=== PATIENT | female | born 1995 | race Caucasian/White ===

== ENCOUNTER 2024-12-10 07:01 | Inpatient (IN) | payer BC ==
[~2024-12-10 07:01] MED LIST: BRETHINE 1 MG/ML SQ PRN; Ephedrine Sulfate 50 MG/ML IV PRN; Nubain 10 MG/ML IV PRN; PITOCIN 30 UNITS/ LR 500 ML 30 UNITS/500 ML PLAST..BAG IV SCH; STADOL 2 MG IV PRN; TYLENOL EXTRA STRENGTH 500 MG PO PRN; XYLOCAINE 1% HCL 20 ML MDV IJ PRN; Zofran 4 MG/2 ML VIAL IV PRN
[2024-12-10 08:00] LABS: BASOPHIL % 0.2 % (0.1-1.2); Basophil (Absolute #) 0.02 x10^3/uL (0.01-0.08); Eosinophil (Absolute #) 0.08 x10^3/uL (0.04-0.36); Hematocrit 35.2 % (34.1-44.9); Hemoglobin 11.7 g/dL (11.2-15.7); IMMATURE GRAN # 0.05 x10^3u/L (0.001-0.031); IMMATURE GRAN % 0.5 % (0.001-0.429); Lymphocyte (Absolute #) 1.99 x10^3/uL (1.18-3.74); Mean Corpuscular Hemoglobin 28.3 pg (25.6-32.2); Mean Corpuscular Hgb Concent. 33.2 g/dL (32.2-35.5); Monocyte (Absolute #) 0.66 x10^3/uL (0.24-0.86); NUCLEATED RBC # 0.00 x10^3u/L (0.00-0.012); NUCLEATED RBC % 0.0 % (0.00-0.2); Platelet Count 266 x10^3/uL (182-369); Red Blood Count 4.13 x10^6/uL (3.93-5.22); White Blood Count 9.1 x10^3/uL (3.98-10.04)
--- NOTE | 2024-12-10 08:14 | PCM.HP ---
History of Present Illness - Chief Complaint Chief Complaint: Induction of labor Date: 12/10/24 History of Present Illness: is a 29 year old @ 40w1d gestation who is being admitted for induction of labor due to post dates. Patient was 3 cm dilated in the office yesterday. has been uncomplicated and she is not having contractions. PNL: O+, Ab neg, RPR, HIV, Hep B/C all neg, RI. - Review of Systems Constitutional: No Fever, No Chills Respiratory: No Cough, No Short Of Breath Cardiac: No Chest Pain, No Palpitations Abdominal/Gastrointestinal: Other (gravid) Genitourinary Symptoms: Musculoskeletal: No Symptoms Neurological: No Symptoms Psychological: No Symptoms Medications & Allergies Home Medications: Home Medication List Cetirizine HCl [Zyrtec] 10 mg PO DAILY 12/10/24 [History Confirmed 12/10/24] Vit No.130/Iron/Folic [ Vitamins] 1 each PO DAILY 12/10/24 [History Confirmed 12/10/24] Allergies/Adverse Reactions: Allergies Allergy/AdvReac Type Severity Reaction Status Date / Time No Known Drug Allergies Allergy Verified 12/10/24 19:26 - Past Medical History Neurological History: No Pertinent History ENT History: No Pertinent History Cardiac History: No Pertinent History Respiratory History: No Pertinent History Endocrine Medical History: No Pertinent History Musculoskelatal History: No Pertinent History GI Medical History: No Pertinent History History: No Pertinent History - Social Determinants of Health Will the patient participate in the screening: Yes Do you worry about a steady place to live?: No In the past 12 months,have you had to go without utilities?: No Have you or anyone in your house had to go without enough: No Transportation Issues: No Has anyone in your support network made you feel unsafe?: No Does the patient want assistance with any of the above?: No - Physical Exam General Appearance: no apparent distress Neurologic Exam: alert Neck Exam: supple Pelvic Exam: other (/-3) Extremity Exam: No calf tenderness Skin Exam: normal color, warm, dry Results - Labs Lab/Micro Results: Lab Results-Last 24 Hours 12/10/24 Range/Units 07:44 WBC 9.1 (3.98-10.04) x10^3/uL RBC 4.13 (3.93-5.22) x10^6/uL Hgb 11.7 (11.2-15.7) g/dL Hct 35.2 (34.1-44.9) % MCV 85.2 (79.4-94.8) fL MCH 28.3 (25.6-32.2) pg MCHC 33.2 (32.2-35.5) g/dL RDW 16.5 H (11.7-14.4) % Plt Count 266 (182-369) x10^3/uL MPV 9.8 (9.4-12.3) fL Gran % 69.2 (34.0-71.1) % Immature Gran % (Auto) 0.5 H (0.001-0.429) % Nucleat RBC Rel Count 0.0 (0.00-0.2) % Eos # (Auto) 0.08 (0.04-0.36) x10^3/uL Immature Gran # (Auto) 0.05 H (0.001-0.031) x10^3u/L Absolute Lymphs (auto) 1.99 (1.18-3.74) x10^3/uL Absolute Monos (auto) 0.66 (0.24-0.86) x10^3/uL Absolute Nucleated RBC 0.00 (0.00-0.012) x10^3u/L Lymphocytes % 21.9 (19.3-51.7) % Monocytes % 7.3 (4.7-12.5) % Eosinophils % 0.9 (0.7-5.8) % Basophils % 0.2 (0.1-1.2) % Absolute Granulocytes 6.30 H (1.56-6.13) x10^3/uL Basophils # 0.02 (0.01-0.08) x10^3/uL Assessment/Plan (1) Elective induction of labor planned Current Visit: Yes Status: Acute Assessment & Plan: Plan for induction of labor -Start pitocin per protocol -Routine labor care -Epidural if desired. Code(s): TSV6491 -
[2024-12-10 08:29] LABS: Amphetamine,Urine NEGATIVE (NEGATIVE); Barbiturate,Urine NEGATIVE (NEGATIVE); Benzodiazepine,Urine NEGATIVE (NEGATIVE); Cocaine,Urine NEGATIVE (NEGATIVE); Methadone,Urine NEGATIVE (NEGATIVE); Opiate,Urine NEGATIVE (NEGATIVE); PCP,Urine NEGATIVE (NEGATIVE); THC,Urine NEGATIVE (NEGATIVE)
[2024-12-10 08:47] LABS: ABO TYPING O; RH TYPING POSITIVE
[2024-12-10] MEDS: PITOCIN 30 UNITS/ LR 500 ML 30 UNITS/500 ML PLAST..BAG IV SCH (09:00)
[2024-12-10] MEDS: Lactated Ringers 1,000 ML IV SCH (11:13)
[2024-12-10 12:02] LABS: Glucose, Urine Negative (Negative); Protein,Urine Dip Trace (Negative)
[2024-12-10] MEDS: FENTANYL 2 MCG-BUPIV 0.125%-NS 250 ML Epidur 250 ML EPIDURAL SCH (12:06)
[2024-12-10] MEDS: Lactated Ringers 1,000 ML IV ONE (12:07)
[2024-12-10] MEDS ORDERED: Lactated Ringers 1,000 ML IV ONE (19:00)
[2024-12-10] MEDS ORDERED: SOD CITRATE-CITRIC ACID SOLN ONE (19:02)
[2024-12-10] MEDS ORDERED: Reglan 10 MG/2 ML ONE (19:03)
[2024-12-10] MEDS ORDERED: Pepcid 20 MG VIAL IV ONE (19:03)
[2024-12-10] MEDS ORDERED: CEFAZOLIN SODIUM ONE (19:04)
[2024-12-10] MEDS: Pepcid 20 MG VIAL IV SCH (19:05)
[2024-12-10] MEDS: SOD CITRATE-CITRIC ACID SOLN PO SCH (19:05)
[2024-12-10] MEDS: Reglan 10 MG/2 ML IV SCH (19:05)
--- NOTE | 2024-12-10 19:06 | PCM.NOTE ---
Date and Time: 12/10/241900 Subjective Assessment: Patient has been laboring and actively pushing for approx 2 hours on her back, left, right, and hands and knees position. is not progressing and mom is becoming exhausted. Situation was discussed with mom and it was decided that we would perform a for arrested descent via shared decision making with patient. was called at 1902. LDR Objective Exam General Appearance: mild distress Gastrointestinal/Abdomen Exam: soft Extremity Exam: normal inspection, No calf tenderness Pelvic Exam: other (CE 10/100/+1) Objective Data Vital Signs: Vital Signs - 24 hr Temp Pulse Resp BP BP Pulse Ox 12/10/24 16:45 20 12/10/24 16:30 20 12/10/24 16:15 86 20 120/80 12/10/24 16:00 86 20 136/71 12/10/24 15:45 20 123/74 12/10/24 15:30 20 140/73 12/10/24 15:15 20 140/73 12/10/24 15:00 82 20 130/72 12/10/24 14:45 77 20 130/74 12/10/24 14:30 85 20 139/82 12/10/24 14:15 80 20 144/93 12/10/24 14:00 91 H 20 127/81 12/10/24 13:45 81 20 137/81 12/10/24 13:30 81 20 137/81 96 12/10/24 13:15 78 18 129/72 96 12/10/24 13:00 100 H 18 124/67 98 12/10/24 12:45 100 H 18 124/67 98 12/10/24 12:30 100 H 24 143/79 100 12/10/24 12:15 83 24 100 12/10/24 12:00 65 24 147/86 12/10/24 11:45 68 22 134/87 12/10/24 11:30 75 22 131/79 12/10/24 11:15 83 18 134/86 12/10/24 11:00 83 18 134/86 12/10/24 10:45 77 18 159/65 12/10/24 10:30 79 18 135/84 12/10/24 10:15 84 18 127/74 12/10/24 10:00 97.9 F 78 18 119/74 97 12/10/24 09:00 84 18 127/74 12/10/24 08:19 97.9 F 105 H 18 139/70 97 12/10/24 07:30 97.9 F 78 18 139/70 97 Intake and Output: Intake & Output 12/08/24 12/09/24 12/10/24 12/11/24 11:59 11:59 11:59 11:59 Intake Total 1000 Output Total 50 Balance 950 Weight 117.48 kg Lab Results: Lab Results-Last 24 Hours 12/10/24 12/10/24 12/10/24 Range/Units 07:44 07:44 07:45 WBC 9.1 (3.98-10.04) x10^3/uL RBC 4.13 (3.93-5.22) x10^6/uL Hgb 11.7 (11.2-15.7) g/dL Hct 35.2 (34.1-44.9) % MCV 85.2 (79.4-94.8) fL MCH 28.3 (25.6-32.2) pg MCHC 33.2 (32.2-35.5) g/dL RDW 16.5 H (11.7-14.4) % Plt Count 266 (182-369) x10^3/uL MPV 9.8 (9.4-12.3) fL Gran % 69.2 (34.0-71.1) % Immature Gran % (Auto) 0.5 H (0.001-0.429) % Nucleat RBC Rel Count 0.0 (0.00-0.2) % Eos # (Auto) 0.08 (0.04-0.36) x10^3/uL Immature Gran # (Auto) 0.05 H (0.001-0.031) x10^3u/L Absolute Lymphs (auto) 1.99 (1.18-3.74) x10^3/uL Absolute Monos (auto) 0.66 (0.24-0.86) x10^3/uL Absolute Nucleated RBC 0.00 (0.00-0.012) x10^3u/L Lymphocytes % 21.9 (19.3-51.7) % Monocytes % 7.3 (4.7-12.5) % Eosinophils % 0.9 (0.7-5.8) % Basophils % 0.2 (0.1-1.2) % Absolute Granulocytes 6.30 H (1.56-6.13) x10^3/uL Basophils # 0.02 (0.01-0.08) x10^3/uL Urine Color (Yellow) Urine Appearance (Clear) Urine pH (4.6-8.0) Ur Specific Alligator (1.005-1.030) Urine Protein (Negative) Urine Glucose (UA) (Negative) mg/dL Urine Ketones (Negative) Urine Blood (Negative) Urine Nitrite (Negative) Urine Bilirubin (Negative) Urine Urobilinogen (0.2) mg/dL Ur Leukocyte Esterase (Negative) U Hyaline Cast (Auto) (0-2) /LPF Urine Microscopic RBC (0-5) /HPF Urine Microscopic WBC (0-5) /HPF Ur Epithelial Cells (None Seen) /HPF Urine Bacteria (None Seen) /HPF Urine Culture Reflexed (NO) Urine Opiates Level NEGATIVE (NEGATIVE) Ur Methadone NEGATIVE (NEGATIVE) Urine Barbiturates NEGATIVE (NEGATIVE) Ur Phencyclidine (PCP) NEGATIVE (NEGATIVE) Urine Amphetamine NEGATIVE (NEGATIVE) U Benzodiazepine Level NEGATIVE (NEGATIVE) Urine Cocaine NEGATIVE (NEGATIVE) Urine Marijuana (THC) NEGATIVE (NEGATIVE) ABO Group O Rh Factor POSITIVE Antibody Screen NEGATIVE (NEGATIVE) 12/10/24 Range/Units 10:00 WBC (3.98-10.04) x10^3/uL RBC (3.93-5.22) x10^6/uL Hgb (11.2-15.7) g/dL Hct (34.1-44.9) % MCV (79.4-94.8) fL MCH (25.6-32.2) pg MCHC (32.2-35.5) g/dL RDW (11.7-14.4) % Plt Count (182-369) x10^3/uL MPV (9.4-12.3) fL Gran % (34.0-71.1) % Immature Gran % (Auto) (0.001-0.429) % Nucleat RBC Rel Count (0.00-0.2) % Eos # (Auto) (0.04-0.36) x10^3/uL Immature Gran # (Auto) (0.001-0.031) x10^3u/L Absolute Lymphs (auto) (1.18-3.74) x10^3/uL Absolute Monos (auto) (0.24-0.86) x10^3/uL Absolute Nucleated RBC (0.00-0.012) x10^3u/L Lymphocytes % (19.3-51.7) % Monocytes % (4.7-12.5) % Eosinophils % (0.7-5.8) % Basophils % (0.1-1.2) % Absolute Granulocytes (1.56-6.13) x10^3/uL Basophils # (0.01-0.08) x10^3/uL Urine Color Yellow (Yellow) Urine Appearance Cloudy A (Clear) Urine pH 6.5 (4.6-8.0) Ur Specific Alligator 1.020 (1.005-1.030) Urine Protein Trace A (Negative) Urine Glucose (UA) Negative (Negative) mg/dL Urine Ketones Negative (Negative) Urine Blood Negative (Negative) Urine Nitrite Negative (Negative) Urine Bilirubin Negative (Negative) Urine Urobilinogen 1.0 A (0.2) mg/dL Ur Leukocyte Esterase Moderate A (Negative) U Hyaline Cast (Auto) 6-10 A (0-2) /LPF Urine Microscopic RBC 3-5 (0-5) /HPF Urine Microscopic WBC 6-10 A (0-5) /HPF Ur Epithelial Cells Few (None Seen) /HPF Urine Bacteria Few A (None Seen) /HPF Urine Culture Reflexed YES (NO) Urine Opiates Level (NEGATIVE) Ur Methadone (NEGATIVE) Urine Barbiturates (NEGATIVE) Ur Phencyclidine (PCP) (NEGATIVE) Urine Amphetamine (NEGATIVE) U Benzodiazepine Level (NEGATIVE) Urine Cocaine (NEGATIVE) Urine Marijuana (THC) (NEGATIVE) ABO Group Rh Factor Antibody Screen (NEGATIVE) Medications: Medications Generic Name Dose Route Start Last Admin Trade Name Freq PRN Reason Stop Dose Admin Acetaminophen 1,000 mg 12/10/24 07:00 Acetaminophen 500 Mg Tablet PO 01/09/25 06:59 Q4H PRN PRN HEADACHE/MILD PAIN/ FEVER Butorphanol Tartrate 1 mg 12/10/24 07:00 Butorphanol Tartrate 2 Mg/Ml Vial IV 01/09/25 06:59 Q4H PRN PRN MODERATE PAIN Ephedrine Sulfate 10 mg 12/10/24 07:00 Ephedrine Sulfate 50 Mg/Ml IV 01/09/25 06:59 PRN PRN SBP<100 Lactated Ringer's 1,000 mls @ 125 mls/hr 12/10/24 07:00 12/10/24 16:40 Lactated Ringers IV 01/09/25 06:59 125 mls/hr .Q8H TAMIKO Administration Oxytocin/Lactated Ringer's 30 units in 500 mls @ 5 mls/hr 12/10/24 07:00 Pitocin 30 Units/ Lr 500 Ml IV 01/09/25 06:59 .Q24H TAMIKO FENTANYL/BUPIVACAINE/NS/PF 250 mls @ 0 mls/hr 12/10/24 07:00 12/10/24 12:06 Fentanyl 2 Mcg-Bupiv 0.125%-Ns 250 Ml Epidur EPIDURAL 01/09/25 06:59 14 mls/hr .Q0M TAMIKO Administration Protocol Titrate Oxytocin/Lactated Ringer's 30 units in 500 mls @ 0 mls/hr 12/10/24 07:00 12/10/24 09:00 Pitocin 30 Units/ Lr 500 Ml IV 01/09/25 06:59 2 mls/hr .Q0M TAMIKO Administration Protocol Titrate Lidocaine HCl 10 ml 12/10/24 07:00 Lidocaine Hcl 1% 20 Ml Mdv 20 Ml Ml IJ 01/09/25 06:59 PRN PRN PAIN Nalbuphine HCl 5 - 10 mg 12/10/24 07:00 Nalbuphine Hcl 10 Mg/Ml Ampul IV 01/09/25 06:59 Q4H PRN PRN PAIN Ondansetron HCl 4 mg 12/10/24 07:00 Ondansetron Hcl 4 Mg/2 Ml Vial IV 01/09/25 06:59 Q4H PRN PRN NAUSEA/VOMITING Terbutaline Sulfate 0.25 mg 12/10/24 07:00 Terbutaline Sulfate 1 Mg/Ml Vial SQ 01/09/25 06:59 PRN PRN FOR HYPERSTIMULATION Discontinued Medications Generic Name Dose Route Start Last Admin Trade Name Freq PRN Reason Stop Dose Admin Lactated Ringer's 1,000 mls @ 999 mls/hr 12/10/24 07:00 12/10/24 12:07 Lactated Ringers IV 12/10/24 08:00 999 mls/hr .Q1H1M ONE Administration Monitor Strip - Monitor Monitor: Baseline approx 150 bpm, + accels, no decels, ctx every 3-4 minutes Assessment & Plan (1) Elective induction of labor planned Current Visit: Yes Status: Acute Code(s): NIT7658 - (2) Arrested labor Current Visit: Yes Status: Acute Code(s): O62.1 - SECONDARY UTERINE INERTIA
[2024-12-10 19:28] LABS: INR 0.9 (0.8-3.0); PROTIME 9.9 SECONDS (9.4-12.5); PTT 23.9 SECONDS (25.1-36.5)
[2024-12-10] MEDS ORDERED: Vitamin K 1 MG ONE (19:30)
[2024-12-10] MEDS ORDERED: Erythromycin 1 GM ONE (19:30)
[2024-12-10] MEDS ORDERED: Nesacaine 3% -Mpf*** 20ML SDV ONE (19:51)
[2024-12-10] MEDS ORDERED: Zofran 4 MG/2 ML VIAL ONE (19:51)
[2024-12-10] MEDS ORDERED: Naropin 0.5% 30 ML VIAL ONE (20:23)
[2024-12-10] MEDS ORDERED: TORAdol 30 mg Injection ONE (20:28)
--- NOTE | 2024-12-10 21:22 | OP ---
OB OP NOTE - OPERATIVE NOTE Surgery Date: 12/10/24 Surgery Time: 19:56 PREOPERATIVE DIAGNOSIS: Arrested descent POST OPERATIVE DIAGNOSIS: Arrested Descent Procedure: primary Surgeon: DEVIN LANDIS ANESTHESIA: Epidural ESTIMATED BLOOD LOSS: 648 CONDITION: Stable HISTORY - HISTORY HISTORY: HISTORY: FINDINGS - FINDINGS FINDINGS: FINDINGS: male DESCRIPTION OF PROCEDURE - DESCRIPTION OF PROCEDURE DESCRIPTION OF PROCEDURE: DESCRIPTION OF PROCEDURE: Pre-op diagnosis: Arrested descent of attempted labor at 40w2d gestation. Postop diagnosis: Same Procedure: primary low-transverse section Surgeon: Devin Landis MD Marble Polisher Hand: Lucian Grady MD Anesthesiologist: Lamont Stroud CRNA Anesthesia: epidural QBL: 648 mL UOP: 100 mL Specimen: None Complications: None Findings: Male infant in vertex position with Apgars 5/8; weight 10lbs 2oz; normal uterus, tubes, and ovaries section was called at approximately 1900 for arrested descent. Infant had a category 1 FHT with a baseline of 140 bpm. The patient was taken to the operating room and a spinal epidural was placed. 2 g of Ancef were given for infection prophylaxis. She is prepared and draped in a sterile fashion. A skin incision was made with scalpel. The incision was carried down to the fascia. The fascia was incised and extended laterally. The inferior aspect of the fascia was grasped with the Nirmal clamps. The underlying rectus muscle and pyramidalis was dissected off sharply with Hendrix scissors. In a similar fashion, the superior aspect of the fascia was elevated with Nirmal's and the rectus muscle was dissected off. The rectus muscle was in the midline down to the level of the pubic symphysis. Preperitoneal fatty tissue was bluntly dissected to expose the peritoneum. The peritoneum was found to be free of adherent bowel and dissected bluntly. The peritoneum dissection was extended xiong periorly and inferiorly to the bladder reflection with good visualization of the bladder. Dmitri device was inserted into the abdomen to expose the uterus. The lower uterine segment was incised with a scalpel. The amniotic sac had already been ruptured. Fluid continued to be clear. The uterine incision was extended bluntly with lateral and upward traction. The fetus was in cephalic position. Nurse applied pressure to the head through the vaginal to assist with delivery. The head was elevated out of the pelvis with special attention paid to avoid using the uterine incision as a fulcrum. Kelvin horowitzle fundal pressure was applied once the head was brought into the incision. The was delivered. The cord was clamped immediately. The infant was handed off to the respiratory therapy team. Cord blood and cord blood gas were obtained. IV oxytocin was initiated to facilitate uterine contractions. The placenta was delivered intact with manual massage of the uterine fundus. The uterus was gently wiped with a lap sponge to assure complete removal of placenta membranes. Dmitri device was removed and the uterus lifted out of the cavity to obtain and more optimal view of the uterine incision. The uterine incision was closed with a 0 Vicryl suture in a running locked fashion in three segments due to the jagged nature of the incision after delivery. Hemostasis was achieved. The ovaries and tubes were found to be normal. Uterus was placed back in the abdomen and the area was irrigated and clots were removed. Hemostasis was confirmed. The peritoneum was closed with an 0 Vicryl suture in a continuous running fashion. The fascia was closed with an 0 Vicryl suture. The skin was closed with 4-0 Monocryl suture in a subcuticular fashion. The patient tolerated the procedure well. All the counts were correct x 2. The patient was taken to the recovery room in stable condition. Lucian Grady MD provided assistance excellent assitance with retracting, fundal pressure, and suturing.
[2024-12-10] MEDS ORDERED: Dulcolax 10 MG SUPP PR PRN (21:25)
[2024-12-10] MEDS ORDERED: Dermoplast Spray TP PRN (21:25)
[2024-12-10] MEDS ORDERED: LANSINOH 40 GM TOP PRN (21:25)
[2024-12-10] MEDS ORDERED: CORTISONE 1% CREAM TP PRN (21:25)
[2024-12-10] MEDS ORDERED: NORCO 5/325 MG PO PRN (21:25)
[2024-12-10] MEDS ORDERED: MORPHINE SULFATE 2 MG INJ IV PRN (21:29)
[2024-12-10] MEDS ORDERED: BENADRYL 50 MG/ML IV PRN (21:29)
[2024-12-10] MEDS ORDERED: Narcan 0.4 MG/ML IV PRN (21:29)
[2024-12-10] MEDS ORDERED: CLARITIN 10 MG PO PRN (21:29)
[2024-12-10] MEDS ORDERED: Zofran 4 MG/2 ML VIAL IV PRN (21:29)
[2024-12-10] MEDS ORDERED: Nubain 10 MG/ML IV PRN (21:29)
[2024-12-10] MEDS ORDERED: HOLD NARCOTIC ANALGESICS AND SEDATIVES X24 HR MC PRN (21:29)
[2024-12-10] MEDS ORDERED: PERCOCET TABLET 5/325MG ONE (22:49)
[2024-12-10] MEDS: PERCOCET TABLET 5/325MG PO PRN (22:52)
[2024-12-10] MEDS: Docusate Sodium 100 MG PO SCH (23:10)
[2024-12-11] MEDS ORDERED: TORAdol 30 mg Injection ONE (02:29)
[2024-12-11] MEDS: TORAdol 30 mg Injection IV PRN (02:30)
[2024-12-11] MEDS ORDERED: PERCOCET TABLET 5/325MG ONE ×2 (02:58→06:56)
[2024-12-11] MEDS ORDERED: Dextrose 5%-Lr IV Solution 1000 ML 1,000 ML IV ONE (03:08)
[2024-12-11] MEDS: Dextrose 5%-Lr IV Solution 1000 ML 1,000 ML IV SCH (03:08)
[2024-12-11 05:20] LABS: BASOPHIL % 0.1 % (0.1-1.2); Basophil (Absolute #) 0.03 x10^3/uL (0.01-0.08); Eosinophil (Absolute #) 0 x10^3/uL (0.04-0.36); Hematocrit 29.6 % (34.1-44.9); Hemoglobin 9.4 g/dL (11.2-15.7); IMMATURE GRAN # 0.13 x10^3u/L (0.001-0.031); IMMATURE GRAN % 0.6 % (0.001-0.429); Lymphocyte (Absolute #) 1.38 x10^3/uL (1.18-3.74); Mean Corpuscular Hemoglobin 27.7 pg (25.6-32.2); Mean Corpuscular Hgb Concent. 31.8 g/dL (32.2-35.5); Monocyte (Absolute #) 1.56 x10^3/uL (0.24-0.86); NUCLEATED RBC # 0.00 x10^3u/L (0.00-0.012); NUCLEATED RBC % 0.0 % (0.00-0.2); Platelet Count 236 x10^3/uL (182-369); Red Blood Count 3.39 x10^6/uL (3.93-5.22); White Blood Count 21.4 x10^3/uL (3.98-10.04)
[2024-12-11 07:13] LABS: Slide Review 1 YES
--- NOTE | 2024-12-11 07:51 | PCM.NOTE ---
Date and Time: 12/11/24 0745 Subjective Assessment: POD1 s/p primary c/s for arrested descent. No concerns. She has not been out of bed yet. Cerda is still in place. She has not passed gas. She has eating without difficulty. She is attempting to breast feed. Lochia moderate. Pain well controlled Objective Exam General Appearance: no apparent distress Neurologic Exam: alert, oriented x 3 Skin Exam: normal color Eye Exam: PERRL, EOMI Neck Exam: supple, No non-tender Respiratory Exam: normal breath sounds Cardiovascular Exam: regular rate/rhythm, normal heart sounds Gastrointestinal/Abdomen Exam: soft, tenderness (appropriate. Incision dressing still in place) Uterus: Firm Extremity Exam: No calf tenderness Objective Data Vital Signs: Vital Signs - 24 hr Temp Pulse Resp BP BP Pulse Ox 12/11/24 02:15 98.1 F 82 16 131/82 100 12/11/24 00:17 98.1 F 92 H 16 137/62 100 12/10/24 23:43 98.1 F 88 16 126/61 99 12/10/24 23:00 98.1 F 88 16 126/61 99 12/10/24 22:45 98.0 F 83 16 153/72 97 12/10/24 22:30 98.0 F 82 16 163/70 100 12/10/24 22:15 98.8 F 70 16 150/73 100 12/10/24 22:00 98.0 F 73 16 145/67 97 12/10/24 21:45 98.0 F 76 16 130/60 100 12/10/24 21:30 98.0 F 73 16 133/82 97 12/10/24 19:07 97.5 F 20 139/70 12/10/24 19:01 97.5 F 88 20 139/70 93 L 12/10/24 17:00 97.5 F 20 119/71 12/10/24 16:45 20 12/10/24 16:30 20 12/10/24 16:15 86 20 120/80 12/10/24 16:00 86 20 136/71 12/10/24 15:45 20 123/74 12/10/24 15:30 20 140/73 12/10/24 15:15 20 140/73 12/10/24 15:00 82 20 130/72 12/10/24 14:45 77 20 130/74 12/10/24 14:30 85 20 139/82 12/10/24 14:15 80 20 144/93 12/10/24 14:00 91 H 20 127/81 12/10/24 13:45 81 20 137/81 12/10/24 13:30 81 20 137/81 96 12/10/24 13:15 78 18 129/72 96 12/10/24 13:00 100 H 18 124/67 98 12/10/24 12:45 100 H 18 124/67 98 12/10/24 12:30 100 H 24 143/79 100 12/10/24 12:15 83 24 100 12/10/24 12:00 65 24 147/86 12/10/24 11:45 68 22 134/87 12/10/24 11:30 75 22 131/79 12/10/24 11:15 83 18 134/86 12/10/24 11:00 83 18 134/86 12/10/24 10:45 77 18 159/65 12/10/24 10:30 79 18 135/84 12/10/24 10:15 84 18 127/74 12/10/24 10:00 97.9 F 78 18 119/74 97 12/10/24 09:00 84 18 127/74 12/10/24 08:19 97.9 F 105 H 18 139/70 97 Pain Assessment - Last Documented Pain Intensity [Posterior] 3 Pain Intensity 6 Pain Scale Used 0-10 Pain Scale Intake and Output: Intake & Output 12/08/24 12/09/24 12/10/24 12/11/24 11:59 11:59 11:59 11:59 Intake Total 3400 Output Total 350 Balance 3050 Weight 117.48 kg 117.48 kg Lab Results: Lab Results-Last 24 Hours 12/10/24 12/10/24 12/10/24 Range/Units 07:44 07:44 07:45 WBC 9.1 (3.98-10.04) x10^3/uL RBC 4.13 (3.93-5.22) x10^6/uL Hgb 11.7 (11.2-15.7) g/dL Hct 35.2 (34.1-44.9) % MCV 85.2 (79.4-94.8) fL MCH 28.3 (25.6-32.2) pg MCHC 33.2 (32.2-35.5) g/dL RDW 16.5 H (11.7-14.4) % Plt Count 266 (182-369) x10^3/uL MPV 9.8 (9.4-12.3) fL Gran % 69.2 (34.0-71.1) % Immature Gran % (Auto) 0.5 H (0.001-0.429) % Nucleat RBC Rel Count 0.0 (0.00-0.2) % Eos # (Auto) 0.08 (0.04-0.36) x10^3/uL Immature Gran # (Auto) 0.05 H (0.001-0.031) x10^3u/L Absolute Lymphs (auto) 1.99 (1.18-3.74) x10^3/uL Absolute Monos (auto) 0.66 (0.24-0.86) x10^3/uL Absolute Nucleated RBC 0.00 (0.00-0.012) x10^3u/L Lymphocytes % 21.9 (19.3-51.7) % Monocytes % 7.3 (4.7-12.5) % Eosinophils % 0.9 (0.7-5.8) % Basophils % 0.2 (0.1-1.2) % Absolute Granulocytes 6.30 H (1.56-6.13) x10^3/uL Basophils # 0.02 (0.01-0.08) x10^3/uL PT (9.4-12.5) SECONDS INR (0.8-3.0) APTT (25.1-36.5) SECONDS Urine Color (Yellow) Urine Appearance (Clear) Urine pH (4.6-8.0) Ur Specific Silva (1.005-1.030) Urine Protein (Negative) Urine Glucose (UA) (Negative) mg/dL Urine Ketones (Negative) Urine Blood (Negative) Urine Nitrite (Negative) Urine Bilirubin (Negative) Urine Urobilinogen (0.2) mg/dL Ur Leukocyte Esterase (Negative) U Hyaline Cast (Auto) (0-2) /LPF Urine Microscopic RBC (0-5) /HPF Urine Microscopic WBC (0-5) /HPF Ur Epithelial Cells (None Seen) /HPF Urine Bacteria (None Seen) /HPF Urine Culture Reflexed (NO) Urine Opiates Level NEGATIVE (NEGATIVE) Ur Methadone NEGATIVE (NEGATIVE) Urine Barbiturates NEGATIVE (NEGATIVE) Ur Phencyclidine (PCP) NEGATIVE (NEGATIVE) Urine Amphetamine NEGATIVE (NEGATIVE) U Benzodiazepine Level NEGATIVE (NEGATIVE) Urine Cocaine NEGATIVE (NEGATIVE) Urine Marijuana (THC) NEGATIVE (NEGATIVE) Slides for Path Review ABO Group O Rh Factor POSITIVE Antibody Screen NEGATIVE (NEGATIVE) 12/10/24 12/10/24 12/11/24 Range/Units 10:00 19:10 04:30 WBC 21.4 H (3.98-10.04) x10^3/uL RBC 3.39 L (3.93-5.22) x10^6/uL Hgb 9.4 L (11.2-15.7) g/dL Hct 29.6 L (34.1-44.9) % MCV 87.3 (79.4-94.8) fL MCH 27.7 (25.6-32.2) pg MCHC 31.8 L (32.2-35.5) g/dL RDW 17.0 H (11.7-14.4) % Plt Count 236 (182-369) x10^3/uL MPV 9.7 (9.4-12.3) fL Gran % 85.6 H (34.0-71.1) % Immature Gran % (Auto) 0.6 H (0.001-0.429) % Nucleat RBC Rel Count 0.0 (0.00-0.2) % Eos # (Auto) 0 L (0.04-0.36) x10^3/uL Immature Gran # (Auto) 0.13 H (0.001-0.031) x10^3u/L Absolute Lymphs (auto) 1.38 (1.18-3.74) x10^3/uL Absolute Monos (auto) 1.56 H (0.24-0.86) x10^3/uL Absolute Nucleated RBC 0.00 (0.00-0.012) x10^3u/L Lymphocytes % 6.4 L (19.3-51.7) % Monocytes % 7.3 (4.7-12.5) % Eosinophils % 0.0 L (0.7-5.8) % Basophils % 0.1 (0.1-1.2) % Absolute Granulocytes 18.33 H (1.56-6.13) x10^3/uL Basophils # 0.03 (0.01-0.08) x10^3/uL PT 9.9 (9.4-12.5) SECONDS INR 0.90 (0.8-3.0) APTT 23.9 L (25.1-36.5) SECONDS Urine Color Yellow (Yellow) Urine Appearance Cloudy A (Clear) Urine pH 6.5 (4.6-8.0) Ur Specific Silva 1.020 (1.005-1.030) Urine Protein Trace A (Negative) Urine Glucose (UA) Negative (Negative) mg/dL Urine Ketones Negative (Negative) Urine Blood Negative (Negative) Urine Nitrite Negative (Negative) Urine Bilirubin Negative (Negative) Urine Urobilinogen 1.0 A (0.2) mg/dL Ur Leukocyte Esterase Moderate A (Negative) U Hyaline Cast (Auto) 6-10 A (0-2) /LPF Urine Microscopic RBC 3-5 (0-5) /HPF Urine Microscopic WBC 6-10 A (0-5) /HPF Ur Epithelial Cells Few (None Seen) /HPF Urine Bacteria Few A (None Seen) /HPF Urine Culture Reflexed YES (NO) Urine Opiates Level (NEGATIVE) Ur Methadone (NEGATIVE) Urine Barbiturates (NEGATIVE) Ur Phencyclidine (PCP) (NEGATIVE) Urine Amphetamine (NEGATIVE) U Benzodiazepine Level (NEGATIVE) Urine Cocaine (NEGATIVE) Urine Marijuana (THC) (NEGATIVE) Slides for Path Review YES ABO Group Rh Factor Antibody Screen (NEGATIVE) Medications: Medications Generic Name Dose Route Start Last Admin Trade Name Freq PRN Reason Stop Dose Admin Acetaminophen 500 - 1,000 mg 12/10/24 21:25 Acetaminophen 500 Mg Tablet PO 01/09/25 21:24 Q4H PRN PRN MILD PAIN Hydrocodone Bitart/Acetaminophen 1 tab 12/10/24 21:25 Hydrocodone/Apap 5/325 1 Tab Tablet PO 12/15/24 21:24 Q4H PRN PRN SEVERE PAIN Benzocaine 40 gm 12/10/24 21:25 Benzocaine/Lanolin/Aloe Vera 85 Gm Can TP 01/09/25 21:24 UD PRN PAIN Bisacodyl 10 mg 12/10/24 21:25 Bisacodyl 10 Mg Supp.Rect WI 01/09/25 21:24 PRN PRN CONSTIPATION Diphenhydramine HCl 12.5 - 25 mg 12/10/24 21:29 Diphenhydramine Hcl 50 Mg/Ml Vial IV 12/11/24 21:28 Q6H PRN PRN ITCHING Docusate Sodium 100 mg 12/10/24 22:00 12/10/24 23:10 Docusate Sodium 100 Mg Capsule PO 01/09/25 21:59 Not Given BID TAMIKO Emollient Ointment 0 gm 12/10/24 21:25 Lansinoh 40 Gm Tube TOP 01/09/25 21:24 PRN PRN PAIN Hydrocortisone 0.5 gm 12/10/24 21:25 Hydrocortisone 1% Cream 28 Gm Tube TP 01/09/25 21:24 PRN PRN ITCHING Lactated Ringer's 1,000 mls @ 125 mls/hr 12/10/24 07:00 12/10/24 16:40 Lactated Ringers IV 01/09/25 06:59 125 mls/hr .Q8H TAMIKO Administration Oxytocin/Lactated Ringer's 30 units in 500 mls @ 0 mls/hr 12/10/24 07:00 12/10/24 09:00 Pitocin 30 Units/ Lr 500 Ml IV 01/09/25 06:59 2 mls/hr .Q0M TAMIKO Administration Protocol Titrate Dextrose/Lactated Ringer's 1,000 mls @ 125 mls/hr 12/10/24 21:30 12/11/24 03:08 Dextrose 5%-Lr Iv Solution 1000 Ml IV 01/09/25 21:29 125 mls/hr .Q8H TAMIKO Administration Ibuprofen 800 mg 12/10/24 21:25 Ibuprofen 400 Mg Tablet PO 01/09/25 21:24 Q6H PRN PRN MODERATE PAIN Ketorolac Tromethamine 30 mg 12/11/24 03:00 12/11/24 02:30 Ketorolac Tromethamine 30 Mg/Ml Inj IV 12/16/24 02:59 30 mg Q6H PRN PRN Administration PAIN Loratadine 10 mg 12/10/24 21:29 Loratadine 10 Mg Tablet PO 12/11/24 21:28 QDP PRN ITCHING Morphine Sulfate 2 mg 12/10/24 21:29 Morphine Sulfate 2 Mg/Ml Inj IV 12/11/24 21:28 .Q30MIN PRN PRN SEVERE PAIN Nalbuphine HCl 5 - 10 mg 12/10/24 07:00 Nalbuphine Hcl 10 Mg/Ml Ampul IV 01/09/25 06:59 Q4H PRN PRN PAIN Nalbuphine HCl 5 mg 12/10/24 21:29 Nalbuphine Hcl 10 Mg/Ml Ampul IV 12/11/24 21:28 Q6H PRN PRN ITCHING Naloxone HCl 0.1 mg 12/10/24 21:29 Naloxone Hcl 0.4 Mg/Ml Ml IV 12/11/24 21:28 PRN PRN OVERDOSE Ondansetron HCl 4 mg 12/10/24 07:00 Ondansetron Hcl 4 Mg/2 Ml Vial IV 01/09/25 06:59 Q4H PRN PRN NAUSEA/VOMITING Ondansetron HCl 4 mg 12/10/24 21:29 Ondansetron Hcl 4 Mg/2 Ml Vial IV 12/11/24 21:28 PRN PRN NAUSEA Oxycodone/Acetaminophen 1 - 2 tab 12/10/24 21:29 12/11/24 06:57 Oxycodone Hcl/Apap 5 Mg/325 Mg Tablet PO 12/11/24 21:28 2 tab Q4H PRN PRN Administration MODERATE PAIN Polysaccharide Iron Complex 150 mg 12/11/24 10:00 Iron Polysaccharides Complex 150 Mg Capsule PO 01/10/25 09:59 DAILY TAMIKO Terbutaline Sulfate 0.25 mg 12/10/24 07:00 Terbutaline Sulfate 1 Mg/Ml Vial SQ 01/09/25 06:59 PRN PRN FOR HYPERSTIMULATION Discontinued Medications Generic Name Dose Route Start Last Admin Trade Name Freq PRN Reason Stop Dose Admin Acetaminophen 1,000 mg 12/10/24 07:00 Acetaminophen 500 Mg Tablet PO 01/09/25 06:59 Q4H PRN PRN HEADACHE/MILD PAIN/ FEVER Butorphanol Tartrate 1 mg 12/10/24 07:00 Butorphanol Tartrate 2 Mg/Ml Vial IV 01/09/25 06:59 Q4H PRN PRN MODERATE PAIN Citric Acid/Sodium Citrate 30 ml 12/10/24 19:00 12/10/24 19:05 Citric Acid/Sodium Citrate 30 Ml Solution PO 12/10/24 23:01 30 ml 1HRPRIOR TAMIKO Administration Ephedrine Sulfate 10 mg 12/10/24 07:00 Ephedrine Sulfate 50 Mg/Ml IV 01/09/25 06:59 PRN PRN SBP<100 Famotidine 20 mg 12/10/24 19:00 12/10/24 19:05 Famotidine 20 Mg/1 Vial IV 12/10/24 23:01 20 mg 1HRPRIOR TAMIKO Administration Oxytocin/Lactated Ringer's 30 units in 500 mls @ 5 mls/hr 12/10/24 07:00 Pitocin 30 Units/ Lr 500 Ml IV 01/09/25 06:59 .Q24H TAMIKO Lactated Ringer's 1,000 mls @ 999 mls/hr 12/10/24 07:00 12/10/24 12:07 Lactated Ringers IV 12/10/24 08:00 999 mls/hr .Q1H1M ONE Administration FENTANYL/BUPIVACAINE/NS/PF 250 mls @ 0 mls/hr 12/10/24 07:00 12/10/24 12:06 Fentanyl 2 Mcg-Bupiv 0.125%-Ns 250 Ml Epidur EPIDURAL 01/09/25 06:59 14 mls/hr .Q0M TAMIKO Administration Protocol Titrate Lactated Ringer's 1,000 mls @ 999 mls/hr 12/10/24 19:00 Lactated Ringers IV 12/10/24 20:00 .Q1H1M ONE Cefazolin Sodium 2 gm/ Sodium 100 mls @ 200 mls/hr 12/10/24 19:00 12/10/24 19:06 Chloride IV 12/10/24 19:29 200 mls/hr ONCALLTOOR ONE Administration Lidocaine HCl 10 ml 12/10/24 07:00 Lidocaine Hcl 1% 20 Ml Mdv 20 Ml Ml IJ 01/09/25 06:59 PRN PRN PAIN Metoclopramide HCl 10 mg 12/10/24 19:00 12/10/24 19:05 Metoclopramide Hcl 10 Mg/2 Ml Vial IV 12/10/24 23:01 10 mg 1HRPRIOR TAMIKO Administration Non-Formulary Medication 1 each 12/10/24 21:29 Hold Narcotic Analgesics/Sedatives 1 Each Each 12/11/24 21:28 PRN PRN PAIN Assessment/Plan (1) delivery delivered Current Visit: Yes Status: Acute Assessment & Plan: POD1 s/p for arrested descent -Remove cerda today -Increase mobility -Iron supplements for anemia -Continue with pain control -Continue routine postop/ care Code(s): O82 - ENCOUNTER FOR DELIVERY WITHOUT INDICATION (2) Elective induction of labor planned Current Visit: Yes Status: Acute Code(s): VAC8751 - (3) Arrested labor Current Visit: Yes Status: Acute Code(s): O62.1 - SECONDARY UTERINE INERTIA
[2024-12-11 08:27] LABS: RPR Non Reactive (Non Reactive)
[2024-12-11] MEDS ORDERED: FERREX 150 ONE (09:00)
[2024-12-11] MEDS ORDERED: Docusate Sodium 100 MG ONE (09:00)
[2024-12-11] MEDS: FERREX 150 PO SCH (09:03)
[2024-12-11] MEDS: MOTRIN 400 MG PO PRN (20:01)
[2024-12-12 05:42] LABS: Hematocrit 27.4 % (34.1-44.9); Hemoglobin 8.6 g/dL (11.2-15.7); Mean Corpuscular Hemoglobin 27.7 pg (25.6-32.2); Mean Corpuscular Hgb Concent. 31.4 g/dL (32.2-35.5); Platelet Count 236 x10^3/uL (182-369); Red Blood Count 3.10 x10^6/uL (3.93-5.22); White Blood Count 16.9 x10^3/uL (3.98-10.04)
--- NOTE | 2024-12-12 11:28 | PCM.NOTE ---
Date and Time: 12/12/24 1128 Subjective Assessment: POD2 s/p . Doing well. Passing gas, voiding on her own, no light headedness or dizziness, lochia minimal, breast feeding with some difficulty. Hgb decreased to 8.6. Objective Exam General Appearance: no apparent distress Neurologic Exam: alert, oriented x 3 Skin Exam: normal color Eye Exam: PERRL Respiratory Exam: normal breath sounds Cardiovascular Exam: regular rate/rhythm, normal heart sounds, No murmur Gastrointestinal/Abdomen Exam: soft Uterus: Normal (2 cm below umbilicus) Extremity Exam: normal inspection, No calf tenderness Back Exam: normal inspection Objective Data Vital Signs: Vital Signs - 24 hr Temp Pulse Resp BP Pulse Ox 12/12/24 08:00 98.1 F 85 20 132/68 97 12/12/24 02:00 98.1 F 85 20 132/68 97 12/11/24 20:00 98.2 F 98 H 20 129/67 97 12/11/24 14:00 98.3 F 85 20 129/60 100 Pain Assessment - Last Documented Pain Intensity [Posterior] 3 Pain Intensity 4 Pain Scale Used 0-10 Pain Scale Intake and Output: Intake & Output 12/09/24 12/10/24 12/11/24 12/12/24 11:59 11:59 11:59 11:59 Intake Total 3400 1790 Output Total 350 840 Balance 3050 950 Weight 117.48 kg 117.48 kg Lab Results: Lab Results-Last 24 Hours 12/12/24 Range/Units 05:30 WBC 16.9 H (3.98-10.04) x10^3/uL RBC 3.10 L (3.93-5.22) x10^6/uL Hgb 8.6 L (11.2-15.7) g/dL Hct 27.4 L (34.1-44.9) % MCV 88.4 (79.4-94.8) fL MCH 27.7 (25.6-32.2) pg MCHC 31.4 L (32.2-35.5) g/dL RDW 17.5 H (11.7-14.4) % Plt Count 236 (182-369) x10^3/uL MPV 9.6 (9.4-12.3) fL Medications: Medications Generic Name Dose Route Start Last Admin Trade Name Gigi PRN Reason Stop Dose Admin Acetaminophen 500 - 1,000 mg 12/10/24 21:25 Acetaminophen 500 Mg Tablet PO 01/09/25 21:24 Q4H PRN PRN MILD PAIN Hydrocodone Bitart/Acetaminophen 1 tab 12/10/24 21:25 Hydrocodone/Apap 5/325 1 Tab Tablet PO 12/15/24 21:24 Q4H PRN PRN SEVERE PAIN Benzocaine 40 gm 12/10/24 21:25 Benzocaine/Lanolin/Aloe Vera 85 Gm Can TP 01/09/25 21:24 UD PRN PAIN Bisacodyl 10 mg 12/10/24 21:25 Bisacodyl 10 Mg Supp.Rect GA 01/09/25 21:24 PRN PRN CONSTIPATION Docusate Sodium 100 mg 12/10/24 22:00 12/12/24 09:49 Docusate Sodium 100 Mg Capsule PO 01/09/25 21:59 100 mg BID TAMIKO Administration Emollient Ointment 0 gm 12/10/24 21:25 Lansinoh 40 Gm Tube TOP 01/09/25 21:24 PRN PRN PAIN Hydrocortisone 0.5 gm 12/10/24 21:25 Hydrocortisone 1% Cream 28 Gm Tube TP 01/09/25 21:24 PRN PRN ITCHING Ibuprofen 800 mg 12/10/24 21:25 12/12/24 09:49 Ibuprofen 400 Mg Tablet PO 01/09/25 21:24 800 mg Q6H PRN PRN Administration MODERATE PAIN Ketorolac Tromethamine 30 mg 12/11/24 03:00 12/11/24 11:06 Ketorolac Tromethamine 30 Mg/Ml Inj IV 12/16/24 02:59 30 mg Q6H PRN PRN Administration PAIN Ondansetron HCl 4 mg 12/10/24 07:00 Ondansetron Hcl 4 Mg/2 Ml Vial IV 01/09/25 06:59 Q4H PRN PRN NAUSEA/VOMITING Polysaccharide Iron Complex 150 mg 12/11/24 10:00 12/12/24 09:49 Iron Polysaccharides Complex 150 Mg Capsule PO 01/10/25 09:59 150 mg DAILY TAMIKO Administration Discontinued Medications Generic Name Dose Route Start Last Admin Trade Name Gigi PRN Reason Stop Dose Admin Acetaminophen 1,000 mg 12/10/24 07:00 Acetaminophen 500 Mg Tablet PO 01/09/25 06:59 Q4H PRN PRN HEADACHE/MILD PAIN/ FEVER Butorphanol Tartrate 1 mg 12/10/24 07:00 Butorphanol Tartrate 2 Mg/Ml Vial IV 01/09/25 06:59 Q4H PRN PRN MODERATE PAIN Cefazolin Sodium Confirm 12/10/24 19:04 Cefazolin Sodium 2 Gm Vial Administered 12/10/24 19:05 Dose 2 gm .ROUTE .STK-MED ONE Chloroprocaine HCl Confirm 12/10/24 19:51 Chloroprocaine 3% Mpf 20ml Sdv Administered 12/10/24 19:52 Dose 600 mg .ROUTE .STK-MED ONE Citric Acid/Sodium Citrate 30 ml 12/10/24 19:00 12/10/24 19:05 Citric Acid/Sodium Citrate 30 Ml Solution PO 12/10/24 23:01 30 ml 1HRPRIOR TAMIKO Administration Citric Acid/Sodium Citrate Confirm 12/10/24 19:02 Citric Acid/Sodium Citrate 30 Ml Solution Administered 12/10/24 19:03 Dose 30 ml .ROUTE .STK-MED ONE Dexamethasone Sodium Phosphate Confirm 12/10/24 19:51 Dexamethasone Sodium Phosphate 4 Mg/Ml Vial Administered 12/10/24 19:52 Dose 8 mg .ROUTE .STK-MED ONE Diphenhydramine HCl 12.5 - 25 mg 12/10/24 21:29 Diphenhydramine Hcl 50 Mg/Ml Vial IV 12/11/24 21:28 Q6H PRN PRN ITCHING Docusate Sodium Confirm 12/11/24 09:00 Docusate Sodium 100 Mg Capsule Administered 12/11/24 09:01 Dose 100 mg .ROUTE .STK-MED ONE Ephedrine Sulfate 10 mg 12/10/24 07:00 Ephedrine Sulfate 50 Mg/Ml IV 01/09/25 06:59 PRN PRN SBP<100 Erythromycin Confirm 12/10/24 19:30 Erythromycin Base 1 Gm Tube Eye Ointment Administered 12/10/24 19:31 Dose 1 gm .ROUTE .STK-MED ONE Famotidine 20 mg 12/10/24 19:00 12/10/24 19:05 Famotidine 20 Mg/1 Vial IV 12/10/24 23:01 20 mg 1HRPRIOR TAMIKO Administration Famotidine Confirm 12/10/24 19:03 Famotidine 20 Mg/1 Vial Administered 12/10/24 19:04 Dose 20 mg IV .STK-MED ONE Lactated Ringer's 1,000 mls @ 125 mls/hr 12/10/24 07:00 12/10/24 16:40 Lactated Ringers IV 01/09/25 06:59 125 mls/hr .Q8H TAMIKO Administration Oxytocin/Lactated Ringer's 30 units in 500 mls @ 5 mls/hr 12/10/24 07:00 Pitocin 30 Units/ Lr 500 Ml IV 01/09/25 06:59 .Q24H TAMIKO Lactated Ringer's 1,000 mls @ 999 mls/hr 12/10/24 07:00 12/10/24 12:07 Lactated Ringers IV 12/10/24 08:00 999 mls/hr .Q1H1M ONE Administration FENTANYL/BUPIVACAINE/NS/PF 250 mls @ 0 mls/hr 12/10/24 07:00 12/10/24 12:06 Fentanyl 2 Mcg-Bupiv 0.125%-Ns 250 Ml Epidur EPIDURAL 01/09/25 06:59 14 mls/hr .Q0M TAMIKO Administration Protocol Titrate Oxytocin/Lactated Ringer's 30 units in 500 mls @ 0 mls/hr 12/10/24 07:00 09 09:00 Pitocin 30 Units/ Lr 500 Ml IV 01/09/25 06:59 2 mls/hr .Q0M TAMIKO Administration Protocol Titrate Lactated Ringer's 1,000 mls @ 999 mls/hr 12/10/24 19:00 Lactated Ringers IV 12/10/24 20:00 .Q1H1M ONE Cefazolin Sodium 2 gm/ Sodium 100 mls @ 200 mls/hr 12/10/24 19:00 12/10/24 19:06 Chloride IV 12/10/24 19:29 200 mls/hr ONCALLTOOR ONE Administration Dextrose/Lactated Ringer's 1,000 mls @ 125 mls/hr 12/10/24 21:30 12/11/24 11:06 Dextrose 5%-Lr Iv Solution 1000 Ml IV 01/09/25 21:29 125 mls/hr .Q8H TAMIKO Administration Sodium Chloride Confirm 12/10/24 20:17 Sodium Chloride 0.9% Administered 12/10/24 20:18 Dose 100 mls @ ud .ROUTE .STK-MED ONE Sodium Chloride Confirm 12/10/24 19:04 Sodium Chloride 0.9% Administered 12/10/24 19:05 Dose 100 mls @ ud .ROUTE .STK-MED ONE Dextrose/Lactated Ringer's Confirm 12/11/24 03:08 Dextrose 5%-Lr Iv Solution 1000 Ml Administered 12/11/24 03:09 Dose 1,000 mls @ ud IV .STK-MED ONE Ketorolac Tromethamine Confirm 12/10/24 20:28 Ketorolac Tromethamine 30 Mg/Ml Inj Administered 12/10/24 20:29 Dose 30 mg .ROUTE .STK-MED ONE Ketorolac Tromethamine Confirm 12/11/24 02:29 Ketorolac Tromethamine 30 Mg/Ml Inj Administered 12/11/24 02:30 Dose 30 mg .ROUTE .STK-MED ONE Lidocaine HCl 10 ml 12/10/24 07:00 Lidocaine Hcl 1% 20 Ml Mdv 20 Ml Ml IJ 01/09/25 06:59 PRN PRN PAIN Loratadine 10 mg 12/10/24 21:29 Loratadine 10 Mg Tablet PO 12/11/24 21:28 QDP PRN ITCHING Metoclopramide HCl 10 mg 12/10/24 19:00 12/10/24 19:05 Metoclopramide Hcl 10 Mg/2 Ml Vial IV 12/10/24 23:01 10 mg 1HRPRIOR TAMIKO Administration Metoclopramide HCl Confirm 12/10/24 19:03 Metoclopramide Hcl 10 Mg/2 Ml Vial Administered 12/10/24 19:04 Dose 10 mg .ROUTE .STK-MED ONE Morphine Sulfate 2 mg 12/10/24 21:29 Morphine Sulfate 2 Mg/Ml Inj IV 12/11/24 21:28 .Q30MIN PRN PRN SEVERE PAIN Nalbuphine HCl 5 - 10 mg 12/10/24 07:00 Nalbuphine Hcl 10 Mg/Ml Ampul IV 01/09/25 06:59 Q4H PRN PRN PAIN Nalbuphine HCl 5 mg 12/10/24 21:29 Nalbuphine Hcl 10 Mg/Ml Ampul IV 12/11/24 21:28 Q6H PRN PRN ITCHING Naloxone HCl 0.1 mg 12/10/24 21:29 Naloxone Hcl 0.4 Mg/Ml Ml IV 12/11/24 21:28 PRN PRN OVERDOSE Non-Formulary Medication 1 each 12/10/24 21:29 Hold Narcotic Analgesics/Sedatives 1 Each Each 12/11/24 21:28 PRN PRN PAIN Ondansetron HCl 4 mg 12/10/24 21:29 Ondansetron Hcl 4 Mg/2 Ml Vial IV 12/11/24 21:28 PRN PRN NAUSEA Ondansetron HCl Confirm 12/10/24 19:51 Ondansetron Hcl 4 Mg/2 Ml Vial Administered 12/10/24 19:52 Dose 4 mg .ROUTE .STK-MED ONE Oxycodone/Acetaminophen 1 - 2 tab 12/10/24 21:29 12/11/24 15:40 Oxycodone Hcl/Apap 5 Mg/325 Mg Tablet PO 12/11/24 21:28 2 tab Q4H PRN PRN Administration MODERATE PAIN Oxycodone/Acetaminophen Confirm 12/10/24 22:49 Oxycodone Hcl/Apap 5 Mg/325 Mg Tablet Administered 12/10/24 22:50 Dose 1 tab .ROUTE .STK-MED ONE Oxycodone/Acetaminophen Confirm 12/11/24 02:58 Oxycodone Hcl/Apap 5 Mg/325 Mg Tablet Administered 12/11/24 02:59 Dose 1 tab .ROUTE .STK-MED ONE Oxycodone/Acetaminophen Confirm 12/11/24 06:56 Oxycodone Hcl/Apap 5 Mg/325 Mg Tablet Administered 12/11/24 06:57 Dose 2 tab .ROUTE .STK-MED ONE Phytonadione Confirm 12/10/24 19:30 Phytonadione 1 Mg/0.5 Ml Amp Administered 12/10/24 19:31 Dose 1 mg .ROUTE .STK-MED ONE Polysaccharide Iron Complex Confirm 12/11/24 09:00 Iron Polysaccharides Complex 150 Mg Capsule Administered 12/11/24 09:01 Dose 150 mg .ROUTE .STK-MED ONE Ropivacaine Confirm 12/10/24 20:23 Ropivacaine Hcl 5 Mg/Ml 30ml Vial Administered 12/10/24 20:24 Dose 150 mg .ROUTE .STK-MED ONE Terbutaline Sulfate 0.25 mg 12/10/24 07:00 Terbutaline Sulfate 1 Mg/Ml Vial SQ 01/09/25 06:59 PRN PRN FOR HYPERSTIMULATION Assessment/Plan (1) delivery delivered Current Visit: Yes Status: Acute Assessment & Plan: Continue routine postop care -Continue iron supplements - assistance -Anticipate d/c in the morning Code(s): O82 - ENCOUNTER FOR DELIVERY WITHOUT INDICATION (2) Elective induction of labor planned Current Visit: Yes Status: Acute Code(s): PCN1687 - (3) Arrested labor Current Visit: Yes Status: Acute Code(s): O62.1 - SECONDARY UTERINE INERTIA
[2024-12-12] MEDS: TYLENOL EXTRA STRENGTH 500 MG PO PRN (14:32)
--- NOTE | 2024-12-13 10:00 | PCM.DS ---
Discharge Summary Date of Admission: 12/10/24 11:54 Date of Discharge: 12/13/24 Admitting Physician: DEVIN ALVES MD Consults: Consults on Case 12/10/24 07:00 Notify Anesthesia Provider PRN 12/10/24 21:25 Notify Physician ROUTINE 12/10/24 21:29 Notify Anesthesia Provider PRN Primary Care Provider: DEVIN ALVES MD Allergies Allergies No Known Drug Allergies Allergy (Verified 12/10/24 19:26) OB Hospital Summary - Hospital Course Hospital Course: Alisha is a 29 yo now who was initially admitted for induction of labor at 40w1d gestation. She was placed on pitocin, AROM at approx 1215 with clear fluid, had epidural placed, and completely dilated at approx 2pm. She pushed for approx 30 minutes with little progression. She was then allowed to labor down in various labor positions until approx 530pm. She then pushed in various positions for approximately 90 minutes, again, with minimal progression. She became exhausted and it was determined - based on lack of progression and mother's fatigue, that we should progress to section. Mother agreed with this plan. FHT was showing baseline in 140s with + accels and some early decels with contractions that recovered when contractions subsided. was successful and a 10lbs 2 oz male was born at 808pm. Apgars were 5/8 respectively. Mother did well in the /postop period. She breastfed with some success. She was placed on iron supplements due to blood loss. At time of discharge, lochia was minimal and she met all postop goals. She is medically stable for discharge and will follow up in office in one week. Reason for Admission: Induction of Labor Infant Delivery Method: Primary Section Complications: None OB Discharge Diagnosis: IUP at Term Delivery [place] Baby: Male - Vitals & Intake/Output Vital Signs: Vital Signs Temperature 98.1 F 12/13/24 02:00 Pulse Rate 78 12/13/24 04:35 Respiratory Rate 20 12/13/24 04:35 Blood Pressure 136/63 12/13/24 04:35 O2 Sat by Pulse Oximetry 96 12/13/24 02:00 Intake & Output: Intake & Output 12/10/24 12/11/24 12/12/24 12/13/24 11:59 11:59 11:59 11:59 Intake Total 3400 1790 1000 Output Total 350 840 Balance 3050 950 1000 Weight 117.48 kg 117.48 kg - Lab Result Diagrams: 12/12/24 05:30 Micro Results-Entire Visit: Microbiology 12/10/24 10:00 Urine Culture - Final Clean Catch Midstream MIXED OLLIE; 3 OR MORE TYPES. NO PREDOMINANT ORGANISM. NO FURTHER WORKUP. PLEASE RESUBMIT IF CLINICALLY INDICATED. OB Discharge Exam General Appearance: no apparent distress Neurologic Exam: alert, oriented x 3 Skin Exam: warm, dry Eye Exam: PERRL Neck Exam: normal inspection Respiratory Exam: normal breath sounds, lungs clear Cardiovascular Exam: regular rate/rhythm, normal heart sounds Gastrointestinal/Abdomen Exam: soft, tenderness (appropriate. Insicion c/d/i) Extremity Exam: pedal edema, No calf tenderness Uterus: Normal - Discharge Disposition: Home, Self-Care Condition: Stable Prescriptions: Continue Cetirizine HCl [Zyrtec] 10 mg PO DAILY Vit No.130/Iron/Folic [ Tablet] 1 each PO DAILY Additional Instructions: PLEASE RETURN TO THE OB DEPARTMENT ON SUNDAY, FOR A FOLLOW UP ON BOTH MOM AND BABE. PLEASE CALL DR ALVES'S OFFICE ON SUNDAY TO SCHEDULE AN APPOINTMENT WITH DR ALVES. PLEASE CALL THE OB DEPARTMENT WITH ANY QUESTIONS OR CONCERNS. Follow up with: DEVIN ALVES MD [Primary Care Provider, [facility]ILY [facility]ACT[facility]] - 5 Days Forms: OB Discharge Instructions
[2024-12-13 14:17] VITALS: BP 137/73; PULSE 82; RESP 18; TEMP 97.8; O2SAT 99
== END 2024-12-13 11:25 | disposition home or self-care (01) | DRG 788 ==
LOC: OB 07:01 → OBSVTOIN 11:54 → OB 11:54
PROVIDERS: ADMIT Family Medicine; ATTEND Family Medicine
PROC: 10D00Z1 Extraction of Products of Conception, Low, Open Approach (ICD-10-PCS; principal; 2024-12-10)
DX: O62.1 Secondary uterine inertia (principal); Z3A.40 40 weeks gestation of pregnancy; Z37.0 Single live birth